=== PATIENT | female | born 1965 | race African-American/Black ===

== ENCOUNTER 2017-08-04 19:04 | Emergency (ER) | payer MEDICAID ==
[~2017-08-04] VITALS: Ht 170.2 cm; Wt 87.7 kg
[2017-08-04] MEDS ORDERED: KETOROLAC 60MG/2ML VIAL IM ONE (23:00)
[2017-08-04 23:25] VITALS: BP 122/61
== END 2017-08-05 00:20 | disposition home or self-care (01) ==
LOC: ER 19:04
DX: S83.91XA Sprain of unspecified site of right knee, initial encounter (principal); W18.30XA Fall on same level, unspecified, initial encounter; Y93.89 Activity, other specified; Y92.89 Other specified places as the place of occurrence of the external cause; Y99.8 Other external cause status
CPT/HCPCS: 73562; 96372; 99284; J1885; Z7610

== ENCOUNTER 2018-05-30 00:31 | Emergency (ER) | payer MEDICAID ==
[~2018-05-30] VITALS: Ht 170.2 cm; Wt 82.0 kg
[2018-05-30 05:08] LABS: CLARITY URINE CLEAR (CLEAR); COLOR URINE YELLOW (YELLOW); KETONES URINE NEGATIVE (NEGATIVE); LEUKOCYTE ESTERASE URINE 2+ (NEGATIVE); NITRITE URINE NEGATIVE (NEGATIVE); OCCULT BLOOD URINE TRACE (NEGATIVE); PROTEIN URINE NEGATIVE (NEGATIVE); SPECIFIC GRAVITY URINE 1.022 (1.005-1.030); UROBILINOGEN URINE 0.2 E.U./dL (0.2-1.0)
[2018-05-30] MEDS ORDERED: AZITHROMYCIN 500 MG TABLET PO ONE (06:45)
[2018-05-30] MEDS ORDERED: CEFTRIAXONE SODIUM 250 MG/VIAL IM ONE (06:45)
[2018-05-30 06:58] VITALS: BP 109/64
[2018-06-01 04:14] LABS: CHLAMYDIA TRACHOMATIS NAA Negative (Negative); NEISSERIA GONORRHOEAE NAA Negative (Negative)
== END 2018-05-30 07:29 | disposition home or self-care (01) ==
LOC: ER 00:57
DX: N39.0 Urinary tract infection, site not specified (principal); A59.9 Trichomoniasis, unspecified; J20.9 Acute bronchitis, unspecified; F11.10 Opioid abuse, uncomplicated; N76.0 Acute vaginitis; R05 Cough
CPT/HCPCS: 81003; 87086; 87210; 87491; 87591; 96372; 99284; J0696

== ENCOUNTER 2019-03-21 04:35 | Emergency (ER) | payer MEDICAID ==
[~2019-03-21] VITALS: Ht 170.2 cm; Wt 82.0 kg
[2019-03-21] MEDS ORDERED: BACITRACIN ZINC OINT UDPKT TOP ONE (06:30)
[2019-03-21] MEDS ORDERED: CEPHALEXIN 250MG CAPSULE PO ONE (06:30)
[2019-03-21] MEDS ORDERED: TETANUS, DIPHTHERIA, PERTUSSIS VAC/PF 0.5ML (>7YR OLD) IM ONE (06:30)
[2019-03-21 07:05] VITALS: BP 121/84
== END 2019-03-21 07:05 | disposition home or self-care (01) ==
LOC: ER 05:36
DX: S61.412A Laceration without foreign body of left hand, initial encounter (principal); W26.0XXA Contact with knife, initial encounter; Y93.89 Activity, other specified; Y92.89 Other specified places as the place of occurrence of the external cause
CPT/HCPCS: 90471; 90715; 99283; Z7610